=== PATIENT | male | born 1960 | race African-American/Black ===

== ENCOUNTER 2017-04-06 15:58 | Emergency (ER) | payer BC, OTHER ==
[~2017-04-06] VITALS: Ht 172.7 cm; Wt 88.0 kg
[2017-04-06 16:01] VITALS: Ht 172.7 cm; Wt 88.0 kg
--- NOTE | 2017-04-06 17:47 | ERD ---
ER Documentation Chief Complaint Date/Time DATE: 04/06/17 TIME: 17:44 Chief Complaint anal complaint HPI A 57-year-old male presenting to the emergency department complaining of a fissure in his rectum for the past couple days. Patient denies any associated pain with it. He states that he has used alcohol swab on it. Patient denies significant constipation last bowel movements today. Patient states that he wants antibiotics because every 3 months he takes antibiotics to clean his system ROS All systems reviewed and are negative except as per history of present illness. PMhx/Soc Medical and Surgical Hx: pt denies Medical Hx, pt denies Surgical Hx Hx Alcohol Use: No Hx Substance Use: No Hx Tobacco Use: No Smoking Status: Never smoker Physical Exam Vitals Vital Signs Date Time Temp Pulse Resp B/P Pulse Ox O2 Delivery O2 Flow Rate FiO2 04/06/17 16:01 97.5 78 14 143/88 100 Physical Exam Const: WD NAD Head: Atraumatic Eyes: Normal Conjunctiva ENT: Normal External Ears, Nose and Mouth. Neck: Full range of motion..~ No meningismus. Resp: Clear to auscultation bilaterally Cardio: Regular rate and rhythm, no murmurs Abd: Soft, non tender, non distended. Normal bowel sounds Skin: No petechiae or rashes rectum: fissure noted at 6 o'clock position Back: No midline or flank tenderness Ext: No cyanosis, or edema Neur: Awake and alert Psych: Normal Mood and Affect Procedures/MDM This is a 57-year-old male presenting to the emergency department with anal fissure. There was no evidence of rectal abscess or hemorrhoid. Patient is stable to be discharged home to follow-up with primary care physician. Prescription for Colace and sitz bath was given. Discussed with him to return to ER for any worsening signs since. He understands and agrees with plan. In addition, patient does not show any evidence of infection for antibiotics, risks outweigh the benefits. Departure Diagnosis: Primary Impression: Anal fissure Condition: Stable Patient Instructions: Anal Fissure (Child) Referrals: Additional Instructions: FOLLOW UP WITH YOUR PRIMARY CARE PHYSICIAN TOMORROW.Return to this facility if you are not improving as expected. Take all medicines as directed. Return to this facility if you are not improving as expected. TEOFILO MCKENZIE PA-C Apr 06, 2017 17:47
== END 2017-04-06 17:19 | disposition home or self-care (01) ==
LOC: FTE 15:58
DX: K60.2 Anal fissure, unspecified (principal)
CPT/HCPCS: 99282

== ENCOUNTER 2019-01-31 21:57 | Emergency (ER) | payer OTHER ==
[~2019-01-31] VITALS: Ht 177.8 cm; Wt 85.0 kg
[2019-01-31 22:02] VITALS: Ht 177.8 cm; Wt 85.0 kg
[2019-01-31] MEDS ORDERED: SOD CHLORIDE 0.9% 1,000 ML IV STA (22:05)
[2019-01-31] MEDS ORDERED: HALOPERIDOL 5 MG INJ ONE (22:23)
[2019-01-31] MEDS ORDERED: HALOPERIDOL 5 MG INJ IV ONE (22:30)
--- NOTE | 2019-01-31 22:34 | ERD ---
ER Documentation Chief Complaint Chief Complaint bib ra from home for smoking marijuana with mitzy HPI 58-year-old male brought in via EMS for being found unconscious by his 19-year-old daughter. The initial report was the patient used some mixture of PCP and marijuana. However the patient appears to be slurring his speech and a ppears to be drunk and intoxicated with alcohol. Later history is provided by his daughter and states that he does drink fairly regularly. She states that she got home and found him unconscious in his bed. EMS was called at that point. Glucose in the field was normal. Patient is very confused and perseverating, slurring his speech. He does admit to drinking alcohol today. He denies any other drug use. Remainder of HPI is somewhat limited. ROS Limited PMhx/Soc Medical and Surgical Hx: Unable to obtain Hx Alcohol Use: Yes Hx Substance Use: Yes Hx Tobacco Use: Yes Smoking Status: Current every day smoker FmHx Family History: No diabetes Physical Exam Vitals Vital Signs Date Temp Pulse Resp B/P (MAP) Pulse Ox O2 O2 Flow FiO2 Time Delivery Rate 01/31/19 98.6 97 18 149/102 100 Room Air 23:46 (118) 01/31/19 98.2 98 18 128/97 100 Room Air 22:30 (107) 01/31/19 98.9 79 19 124/70 100 22:02 (88) Physical Exam General: Perseverating, appears to be intoxicated, slurring speech Head: Normocephalic, atraumatic. Eyes: Pupils equally reactive, EOM intact ENT: Moist mucous membranes Neck: Supple, no lymphadenopathy Respiratory: Lungs clear bilaterally, no distress Cardiovascular: RRR, no murmurs, rubs, or gallops Abdominal: Soft, non-tender, non-distended, no peritoneal signs : Deferred MSK: No edema, no unilateral swelling, 5/5 strength Neurologic: Limited exam, appears intoxicated, no focal deficits, moving all extremities. Skin: No rash Psych: Slightly agitated Result Diagram: 01/31/19220501/31/192205 Results 24 hrs Laboratory Tests Test 01/31/19 22:06 01/31/19 23:03 White Blood Count 7.8 10^3/ul Red Blood Count 4.95 10^6/ul Hemoglobin 14.5 g/dl Hematocrit 43.8 % Mean Corpuscular Volume 88.5 fl Mean Corpuscular Hemoglobin 29.3 pg Mean Corpuscular Hemoglobin Concent 33.1 g/dl Red Cell Distribution Width 14.0 % Platelet Count 222 10^3/UL Mean Platelet Volume 10.4 fl Immature Granulocytes % 0.400 % Neutrophils % 41.2 % Lymphocytes % 48.5 % Monocytes % 7.8 % Eosinophils % 1.3 % Basophils % 0.8 % Nucleated Red Blood Cells % 0.0 /100WBC Immature Granulocytes # 0.030 10^3/ul Neutrophils # 3.2 10^3/ul Lymphocytes # 3.8 10^3/ul Monocytes # 0.6 10^3/ul Eosinophils # 0.1 10^3/ul Basophils # 0.1 10^3/ul Nucleated Red Blood Cells # 0.0 10^3/ul Sodium Level 139 mmol/L Potassium Level 4.6 mmol/L Chloride Level 106 mmol/L Carbon Dioxide Level 22 mmol/L Anion Gap 11 Blood Urea Nitrogen 9 mg/dl Creatinine 1.13 mg/dl Est Glomerular Filtrat Rate mL/min > 60 mL/min Glucose Level 111 mg/dl Calcium Level 9.1 mg/dl Total Bilirubin 0.5 mg/dl Direct Bilirubin 0.00 mg/dl Indirect Bilirubin 0.5 mg/dl Aspartate Amino Transf (AST/SGOT) 66 IU/L Alanine Aminotransferase (ALT/SGPT) 43 IU/L Alkaline Phosphatase 77 IU/L Total Protein 8.1 g/dl Albumin 4.1 g/dl Globulin 4.00 g/dl Albumin/Globulin Ratio 1.02 Ethyl Alcohol Level 125.0 mg/dl Urine Opiates Screen Negative Urine Barbiturates Negative Urine Amphetamines Screen Negative Urine Benzodiazepines Screen Negative Urine Cocaine Screen Negative Urine Cannabinoids Negative Current Medications Medications Dose Sig/Yenny Start Time Status Last (Trade) Ordered Route PRN Stop Time Admin Dose Reason Admin Sodium 1,000 ml @ Q1H STAT 01/31/19 DC 01/31/19 Chloride 1,000 mls/hr IV 22:05 22:26 01/31/19 23:04 Haloperidol 2 mg ONCE ONCE 01/31/19 DC 01/31/19 (Haldol) IV 22:30 22:27 01/31/19 22:31 Haloperidol 5 mg STK-MED 01/31/19 DC (Haldol) ONCE .ROUTE 22:23 01/31/19 22:24 Procedures/MDM EKG, MONITORS, & DIAGNOSTIC IMAGING: CT brain: IMPRESSION: 1. Unremarkable unenhanced computed tomograms of the head without evidence of intracranial hemorrhage, mass, or acute infarct. PROCEDURES: None Required LAB INTERPRETATION: Elevated alcohol level MEDICAL DECISION MAKING: The patient's presentation is consistent with acute alcohol intoxication. I have a much lower clinical concern for clinically significant traumatic brain injury, meningitis, significant electrolyte disturbance. The patient's workup will include a medical screening examination as well as observation for sobriety. The patient's presentation is most consistent with acute alcohol intoxication leading to acute encephalopathy. The patient is protecting their airway. The patient has no signs or symptoms concerning for impending respiratory failure and does not require intubation at this time. The patient will require observation in the emergency room to allow for metabolization. Once the patient is able to ambulate on their own accord, navigate the community the patient can be safely discharged from the emergency room. ER COURSE: * The patient's alcohol level is 125. This is lower than I would expect but the patient may have been using other substances based on family report. Patient's drug screen is normal. On interval examination the patient is much improved. He is ambulatory. He is no longer perseverating. * Based on the negative work-up, the fact that the patient is ambulatory, the family feels very comfortable with discharge. Return precautions were discussed and understood. OBSERVATION: Observation Note: Indication: Alcohol Intoxication Duration: 3.5 hours Family history: As above The patient was observed with serial exams over the above timeframe. The patient continued to be well-appearing, and observation continued without complication. CONSULTATION: None DISPOSITION PLAN: At the time of discharge the patient is more alert, ambulatory, steady on his feet. He has a sober ride home. He can be safely discharged. Departure Diagnosis: Primary Impression: Alcohol intoxication Complication of substance-induced condition: uncomplicated Qualified Codes: F10.920 - Alcohol use, unspecified with intoxication, uncomplicated Condition: Stable BAN HARO MD Jan 31, 2019 22:34
[2019-02-01 01:30] VITALS: BP 133/79; PULSE 94; RESP 16
== END 2019-02-01 01:32 | disposition home or self-care (01) ==
LOC: E/R 21:57
DX: F10.920 Alcohol use, unspecified with intoxication, uncomplicated (principal); F17.210 Nicotine dependence, cigarettes, uncomplicated; R41.82 Altered mental status, unspecified
CPT/HCPCS: 70450; 80053; 80307; 85025; J1630; J7030; 36415; 93005; 96374